=== PATIENT | male | born 1950 | race Caucasian/White ===

== ENCOUNTER 2020-09-23 02:44 | Inpatient (IN) ==
[2020-09-23] MEDS ORDERED: 0.9 % Sodium Chloride 1,000 ML IVC ONE (03:01)
[2020-09-23] MEDS ORDERED: Acetaminophen 325 MG TABLET PO ONE (03:31)
[2020-09-23 03:40] LABS: Basophils % 0.1 %; Eosinophils % 0.1 %; Hemoglobin 9.8 g/dL (12.9-16.9); Lymphocytes # 1.3 K/mcL (0.6-4.6); Lymphocytes % 6.7 %; Mean Corpuscular HGB Conc 29.7 g/dL (31.6-35.5); Mean Corpuscular Hemoglobin 25.8 pg (28.0-33.3); Mean Corpuscular Volume 86.8 fL (83.0-100.0); Mean Platelet Volume 10.8 fL (9.4-12.4); Monocytes # 1.1 K/mcL (0.0-1.3); Monocytes % 5.6 %; Neutrophils # 16.8 K/mcL (1.6-8.9); Platelet Count 225 K/mcL (140-400); Red Cell Distribution Width 16.5 % (11.5-14.5); Segmented Neutrophils % 86.5 %; White Blood Count 19.4 K/mcL (4.3-11.1)
[2020-09-23 04:02] LABS: BUN/Creatinine Ratio 23 (6-26); Blood Urea Nitrogen 21 mg/dL (8-23); Calcium 8.5 mg/dL (8.6-10.3); Carbon Dioxide 27 mEq/L (23-29); Chloride 99 mEq/L (98-107); Glucose 136 mg/dL (70-105); Osmolality,Calculated 281 (280-300); Potassium 4.1 mEq/L (3.5-5.1); Sodium 133 mEq/L (136-145); eGFR For African Americans > 60 (> 60); eGFR For Non-African Americans > 60 (> 60)
[2020-09-23 04:03] LABS: Troponin I < 0.03 ng/mL (< 0.04)
[2020-09-23] MEDS ORDERED: Isovue-370 500 ML BOTTLE IVP ONE ×2 (04:09→05:26)
[2020-09-23 05:14] LABS: Adenovirus Not Detected (Not Detect); Bordetella Pertussis Not Detected (Not Detect); Chlamydophila pneumoniae Not Detected (Not Detect); Coronavirus 229E Not Detected (Not Detect); Coronavirus HKU1 Not Detected (Not Detect); Coronavirus NL63 Not Detected (Not Detect); Coronavirus OC43 Not Detected (Not Detect); Human Metapneumovirus Not Detected (Not Detect); Human Rhinovirus/Enterovirus Not Detected (Not Detect); Influenza A Subtype 2009 H1 Not Detected (Not Detect); Influenza B Not Detected (Not Detect); Mycoplasma pneumoniae Not Detected (Not Detect); Parainfluenza Virus 1 Not Detected (Not Detect); Parainfluenza Virus 2 Not Detected (Not Detect); Parainfluenza Virus 3 Not Detected (Not Detect); Parainfluenza Virus 4 Not Detected (Not Detect); Respiratory Syncytial Virus Not Detected (Not Detect); SARS-CoV-2 Not Detected (Not Detect)
[2020-09-23] MEDS ORDERED: Furosemide 40 MG/4 ML VIAL IVP ONE (05:36)
[2020-09-23 05:38] LABS: Bacteria,Urine Few per hpf (None-Few); Bilirubin,Urine Negative (Negative); Blood,Urine Moderate (Negative); Clarity,Urine Clear (Clear); Color,Urine Light-Yellow (Yellow); Glucose,Urine (UA) Normal (Normal); Ketones,Urine Negative (Negative); Leukocyte Esterase,Urine Negative (Negative); Mucus,Urine Few per lpf (None-Few); Nitrite,Urine Negative (Negative); Protein,Urine 30 mg/dL (Neg-Trace); RBC,Urine 15-30 per hpf (0-3); Specific Gravity,Urine > 1.030 (1.010-1.025); Urobilinogen,Urine Normal (Normal); WBC,Urine 0-3 per hpf (0-3)
[2020-09-23] MEDS ORDERED: Piperacillin/Tazobactam 3.375 GM in Water for inj. (sterile) 20 ML IVP ONE (06:05)
[2020-09-23] MEDS ORDERED: Ondansetron ODT 4 MG TAB.RAPDIS SL PRN ×2 (06:27→13:51)
[2020-09-23] MEDS ORDERED: Acetaminophen 325 MG TABLET PO PRN ×2 (06:27→13:51)
[2020-09-23] MEDS ORDERED: Perflutren Lipid Microsphere 1.3 ML in 0.9 % Sodium Chloride 8.7 ML IVP PRN ×2 (06:36→13:51)
[2020-09-23] MEDS ORDERED: *HR* Dextrose 50 % in Water (Vial) 50 ML VIAL IVP PRN ×2 (07:05→13:51)
[2020-09-23] MEDS ORDERED: D5% in Water 1,000 ML IVC PRN ×2 (07:05→13:51)
[2020-09-23] MEDS ORDERED: Dextrose Gel 15 GM/37.5 ML TUBE PO PRN ×4 (07:05→13:51)
[2020-09-23] MEDS ORDERED: *HR* HYDROmorphone PF 0.5 MG/0.5 ML SYRINGE IVP PRN (09:13)
[2020-09-23] MEDS ORDERED: Ondansetron 4 MG/2 ML VIAL IVP PRN (09:13)
[2020-09-23] MEDS ORDERED: *HR* OxyCODONE Immed Rel 5 MG TABLET PO PRN ×3 (09:13→13:51)
[2020-09-23] MEDS ORDERED: Promethazine 6.25 MG in Water for inj. (sterile) 20 ML IVPB PRN (09:13)
[2020-09-23 09:26] LABS: INR 1.3; Prothrombin Time 14.6 Seconds (9.4-12.1)
[2020-09-23] MEDS ORDERED: *HR* Propofol 200 MG/20 ML VIAL IVP ONE (11:06)
[2020-09-23] MEDS ORDERED: *HR* FentaNYL (PF) 100 MCG/2 ML VIAL ONE (11:06)
[2020-09-23] MEDS ORDERED: *HR* Midazolam HCl 2 MG/2 ML VIAL ONE (11:06)
[2020-09-23] MEDS ORDERED: Ondansetron 4 MG/2 ML VIAL ONE (11:06)
[2020-09-23] MEDS ORDERED: Dexamethasone 4 MG/ML VIAL ONE (11:06)
[2020-09-23] MEDS ORDERED: Lidocaine -MPF 2% 2 ML VIAL ONE (11:06)
[2020-09-23] MEDS ORDERED: Lidocaine HCL 4 ML Topical Solution (Laryng-O-Jet Kit Sterile Pak) TP ONE (11:08)
[2020-09-23] MEDS ORDERED: *HR* Rocuronium Bromide 50 MG/5 ML VIAL ONE (11:12)
[2020-09-23] MEDS ORDERED: *HR* Succinylcholine 200 MG/10 ML VIAL IVP ONE (11:12)
[2020-09-23] MEDS ORDERED: Naloxone 0.4 MG/ML INJ IVP PRN ×2 (11:20→13:51)
[2020-09-23] MEDS ORDERED: *HR* HYDROcodone/Acet 5/325 mg TABLET PO PRN ×2 (11:20→13:51)
[2020-09-23] MEDS ORDERED: Insulin LISPRO 300 UNITS/3 ML VIAL SQ SCH ×2 (12:00→18:00)
[2020-09-23] MEDS ORDERED: *HR* Magnesium Sulfate 1 GM/2 ML VIAL ONE (12:12)
[2020-09-23] MEDS ORDERED: Acetaminophen IV 1,000 MG/100 ML INFUS..BTL ONE (12:12)
[2020-09-23] MEDS ORDERED: *HR* Vasopressin 20 UNIT/ML VIAL ONE (12:12)
[2020-09-23] MEDS ORDERED: Ketorolac 30 MG/ML VIAL ONE (12:55)
[2020-09-23] MEDS ORDERED: *HR* HYDROMORPHONE 2 MG/ML VIAL ONE (12:55)
[2020-09-23] MEDS ORDERED: *HR* PHENYLEPHRINE 1,000 MCG/10 ML SYRINGE IVP ONE (13:20)
[2020-09-23] MEDS ORDERED: Ringers Solution, Lactated 1,000 ML ONE (14:02)
[2020-09-23] MEDS: Piperacillin/Tazobactam 3.375 GM in 0.9 % Sodium Chloride Mini Bag 100 ML IVPB SCH ×2 (15:06→23:31)
[2020-09-23] MEDS ORDERED: Piperacillin/Tazobactam 3.375 GM in 0.9 % Sodium Chloride Mini Bag 100 ML IVPB SCH (16:00)
[2020-09-24 05:17] LABS: Hematocrit 28.5 % (37.5-50.1); Hemoglobin 8.3 g/dL (12.9-16.9); Mean Corpuscular HGB Conc 29.1 g/dL (31.6-35.5); Mean Corpuscular Hemoglobin 26.3 pg (28.0-33.3); Mean Corpuscular Volume 90.2 fL (83.0-100.0); Mean Platelet Volume 11.1 fL (9.4-12.4); Platelet Count 167 K/mcL (140-400); Red Blood Count 3.16 M/mcL (4.19-5.50); Red Cell Distribution Width 16.5 % (11.5-14.5); White Blood Count 12.6 K/mcL (4.3-11.1)
[2020-09-24 05:37] LABS: Calcium 8.2 mg/dL (8.6-10.3); Magnesium 2.4 mg/dL (1.6-2.6); Potassium 4.3 mEq/L (3.5-5.1)
[2020-09-24] MEDS ORDERED: *HR* Enoxaparin 40 MG/0.4 ML SYRINGE SQ SCH (06:00)
[2020-09-24] MEDS: *HR* Enoxaparin 40 MG/0.4 ML SYRINGE SQ SCH (06:12)
[2020-09-24] MEDS: Piperacillin/Tazobactam 3.375 GM in 0.9 % Sodium Chloride Mini Bag 100 ML IVPB SCH (08:45)
[2020-09-24] MEDS: methIMAzole 5 MG TABLET PO SCH (08:46)
[2020-09-24] MEDS: lisinopriL 20 MG TABLET PO SCH (08:46)
[2020-09-24] MEDS: Loratadine 10 MG TABLET PO SCH (08:46)
[2020-09-24 11:16] LABS: Adenovirus Not Detected (Not Detect); Bordetella Pertussis Not Detected (Not Detect); Chlamydophila pneumoniae Not Detected (Not Detect); Coronavirus 229E Not Detected (Not Detect); Coronavirus HKU1 Not Detected (Not Detect); Coronavirus NL63 Not Detected (Not Detect); Coronavirus OC43 Not Detected (Not Detect); Human Metapneumovirus Not Detected (Not Detect); Human Rhinovirus/Enterovirus Not Detected (Not Detect); Influenza A Subtype 2009 H1 Not Detected (Not Detect); Influenza B Not Detected (Not Detect); Mycoplasma pneumoniae Not Detected (Not Detect); Parainfluenza Virus 1 Not Detected (Not Detect); Parainfluenza Virus 2 Not Detected (Not Detect); Parainfluenza Virus 3 Not Detected (Not Detect); Parainfluenza Virus 4 Not Detected (Not Detect); Respiratory Syncytial Virus Not Detected (Not Detect); SARS-CoV-2 Not Detected (Not Detect)
[2020-09-24] MEDS ORDERED: 0.9 % Sodium Chloride 1,000 ML IVC SCH (12:30)
[2020-09-24] MEDS: metroNIDAZOLE 500 MG TABLET PO SCH ×2 (13:39→22:45)
[2020-09-24] MEDS ORDERED: (Doxepin Hcl 10 MG) PO SCH (21:00)
[2020-09-25 05:35] LABS: Red Cell Distribution Width 16.6 % (11.5-14.5)
[2020-09-25 05:36] LABS: Basophils % 0.2 %; Eosinophils # 0.3 K/mcL (0.0-0.6); Eosinophils % 2.2 %; Hematocrit 29.5 % (37.5-50.1); Hemoglobin 8.4 g/dL (12.9-16.9); Immature Granulocytes % 0.4 % (0-4); Lymphocytes # 1.8 K/mcL (0.6-4.6); Lymphocytes % 15.2 %; Mean Corpuscular HGB Conc 28.5 g/dL (31.6-35.5); Mean Corpuscular Hemoglobin 25.5 pg (28.0-33.3); Mean Corpuscular Volume 89.4 fL (83.0-100.0); Mean Platelet Volume 10.3 fL (9.4-12.4); Monocytes # 0.7 K/mcL (0.0-1.3); Monocytes % 5.4 %; Neutrophils # 9.2 K/mcL (1.6-8.9); Platelet Count 180 K/mcL (140-400); Segmented Neutrophils % 76.6 %
[2020-09-25 05:58] LABS: % Iron Saturation 3 % (20-55); Alanine Aminotransferase 11 Units/L (7-52); Albumin 2.8 g/dL (3.5-5.7); Albumin/Globulin Ratio 0.6 (1.1-2.2); Alkaline Phosphatase 85 Units/L (34-104); Aspartate Amino Transferase 12 Units/L (13-39); BUN/Creatinine Ratio 31 (6-26); Bilirubin,Total 0.3 mg/dL (0.3-1.0); Blood Urea Nitrogen 28 mg/dL (8-23); Calcium 8.3 mg/dL (8.6-10.3); Carbon Dioxide 32 mEq/L (23-29); Chloride 105 mEq/L (98-107); Globulin 4.9 g/dL (2.4-3.5); Glucose 105 mg/dL (70-105); Iron 11 mcg/dL (65-175); Lactate Dehydrogenase 124 Units/L (140-271); Osmolality,Calculated 296 (280-300); Potassium 4.2 mEq/L (3.5-5.1); Sodium 140 mEq/L (136-145); Total Protein 7.7 g/dL (6.4-8.9); Transferrin 235 mg/dL (203-362); eGFR For African Americans > 60 (> 60); eGFR For Non-African Americans > 60 (> 60)
[2020-09-25 06:04] LABS: Hypochromasia Present (Not Present); Platelet Estimate Normal (Normal)
[2020-09-25 06:13] LABS: Ferritin 72 ng/mL (20-250)
[2020-09-25 06:19] LABS: Folate 15.4 ng/mL (3.0-16.0)
[2020-09-25] MEDS: *HR* Enoxaparin 40 MG/0.4 ML SYRINGE SQ SCH (06:30)
[2020-09-25 07:05] LABS: Hepatitis B Surface Antigen Nonreactive (Nonreactive)
[2020-09-25] MEDS: metroNIDAZOLE 500 MG TABLET PO SCH (07:29)
[2020-09-25] MEDS: Loratadine 10 MG TABLET PO SCH (07:29)
[2020-09-25] MEDS: methIMAzole 5 MG TABLET PO SCH (07:29)
[2020-09-25] MEDS: lisinopriL 20 MG TABLET PO SCH (07:29)
[2020-09-25 07:34] LABS: Hepatitis C Virus Antibody Nonreactive (Nonreactive)
[2020-09-25 07:35] LABS: Hepatitis B Core IgM Nonreactive (Nonreactive)
[2020-09-25 07:36] LABS: Hepatitis A Antibody IgM Nonreactive (Nonreactive)
[2020-09-26] MEDS: *HR* Enoxaparin 40 MG/0.4 ML SYRINGE SQ SCH (05:41)
[2020-09-26 06:33] LABS: Basophils % 0.2 %; Eosinophils # 1.3 K/mcL (0.0-0.6); Eosinophils % 12.6 %; Hematocrit 29.1 % (37.5-50.1); Hemoglobin 8.6 g/dL (12.9-16.9); Immature Granulocytes % 0.3 % (0-4); Lymphocytes # 1.7 K/mcL (0.6-4.6); Lymphocytes % 16.9 %; Mean Corpuscular HGB Conc 29.6 g/dL (31.6-35.5); Mean Corpuscular Volume 87.9 fL (83.0-100.0); Mean Platelet Volume 10.5 fL (9.4-12.4); Monocytes # 0.6 K/mcL (0.0-1.3); Neutrophils # 6.4 K/mcL (1.6-8.9); Platelet Count 207 K/mcL (140-400); Red Blood Count 3.31 M/mcL (4.19-5.50); Red Cell Distribution Width 16.5 % (11.5-14.5)
[2020-09-26 06:55] LABS: BUN/Creatinine Ratio 27 (6-26); Blood Urea Nitrogen 21 mg/dL (8-23); Calcium 8.5 mg/dL (8.6-10.3); Carbon Dioxide 31 mEq/L (23-29); Chloride 105 mEq/L (98-107); Glucose 121 mg/dL (70-105); Osmolality,Calculated 292 (280-300); Potassium 4.3 mEq/L (3.5-5.1); Sodium 139 mEq/L (136-145); eGFR For African Americans > 60 (> 60); eGFR For Non-African Americans > 60 (> 60)
[2020-09-26] MEDS: Loratadine 10 MG TABLET PO SCH (08:40)
[2020-09-26] MEDS: lisinopriL 20 MG TABLET PO SCH (08:40)
[2020-09-26] MEDS: methIMAzole 5 MG TABLET PO SCH (08:40)
[2020-09-27] MEDS: *HR* Enoxaparin 40 MG/0.4 ML SYRINGE SQ SCH (06:35)
[2020-09-27 07:37] VITALS: BP 164/74
[2020-09-27] MEDS: Loratadine 10 MG TABLET PO SCH (08:15)
[2020-09-27] MEDS: lisinopriL 20 MG TABLET PO SCH (08:15)
[2020-09-27] MEDS: methIMAzole 5 MG TABLET PO SCH (08:16)
[2020-09-27 10:05] LABS: Basophils % 0.3 %; Eosinophils # 1.9 K/mcL (0.0-0.6); Eosinophils % 18.8 %; Hematocrit 34.2 % (37.5-50.1); Hemoglobin 10.1 g/dL (12.9-16.9); Immature Granulocytes % 0.5 % (0-4); Lymphocytes # 1.5 K/mcL (0.6-4.6); Mean Corpuscular HGB Conc 29.5 g/dL (31.6-35.5); Mean Corpuscular Hemoglobin 26.2 pg (28.0-33.3); Mean Corpuscular Volume 88.6 fL (83.0-100.0); Mean Platelet Volume 10.3 fL (9.4-12.4); Monocytes # 0.4 K/mcL (0.0-1.3); Monocytes % 4.4 %; Neutrophils # 6.1 K/mcL (1.6-8.9); Platelet Count 281 K/mcL (140-400); Red Blood Count 3.86 M/mcL (4.19-5.50); Red Cell Distribution Width 16.5 % (11.5-14.5)
[2020-09-28 09:58] LABS: ANA IgG by ELISA NONE DETECTED (None Detected)
== END 2020-09-27 18:14 | disposition home health service (06) | DRG 710 ==
LOC: EMEROOARM 02:44 → 3BNU 02:44 → SUATTDRO 06:55 → 3ANU 06:56 → SUATTDRO 09-25 20:54
PROVIDERS: ADMIT Family Medicine; ATTEND Internal Medicine

== ENCOUNTER 2020-11-13 17:13 | Inpatient (IN) ==
[2020-11-13] MEDS ORDERED: 0.9 % Sodium Chloride 1,000 ML IVC ONE (18:40)
[2020-11-13] MEDS ORDERED: Piperacillin/Tazobactam 3.375 GM in Water for inj. (sterile) 20 ML IVP ONE (18:43)
[2020-11-13 19:55] LABS: Influenza A PCR Negative (Negative); Influenza B PCR Negative (Negative); Resp. Syncytial Virus PCR Negative (Negative)
[2020-11-13 20:02] LABS: SARS-CoV-2 by PCR (In House) Negative (Negative)
[2020-11-13 20:36] LABS: Bilirubin,Urine Negative (Negative); Blood,Urine Negative (Negative); Clarity,Urine Clear (Clear); Color,Urine Colorless (Yellow); Glucose,Urine (UA) Normal (Normal); Ketones,Urine Negative (Negative); Leukocyte Esterase,Urine Negative (Negative); Nitrite,Urine Negative (Negative); Protein,Urine Negative (Neg-Trace); Specific Gravity,Urine > 1.030 (1.010-1.025); Urobilinogen,Urine Normal (Normal)
[2020-11-13] MEDS ORDERED: *HR* HYDROcodone/Acet 5/325 mg TABLET PO PRN (21:15)
[2020-11-13] MEDS ORDERED: Acetaminophen 325 MG TABLET PO PRN (21:15)
[2020-11-13] MEDS ORDERED: Naloxone 0.4 MG/ML INJ IVP PRN (21:15)
[2020-11-13] MEDS ORDERED: 0.9 % Sodium Chloride 1,000 ML IVC SCH (21:15)
[2020-11-13] MEDS: Piperacillin/Tazobactam 3.375 GM in 0.9 % Sodium Chloride Mini Bag 100 ML IVPB SCH (23:26)
[2020-11-14 05:26] LABS: Basophils % 0.7 %; Eosinophils # 0.4 K/mcL (0.0-0.6); Hematocrit 35.7 % (37.5-50.1); Immature Granulocytes % 0.2 % (0-4); Lymphocytes # 1.6 K/mcL (0.6-4.6); Lymphocytes % 25.9 %; Mean Corpuscular HGB Conc 30.8 g/dL (31.6-35.5); Mean Corpuscular Hemoglobin 27.1 pg (28.0-33.3); Mean Corpuscular Volume 87.9 fL (83.0-100.0); Mean Platelet Volume 10.6 fL (9.4-12.4); Monocytes # 0.5 K/mcL (0.0-1.3); Monocytes % 7.9 %; Neutrophils # 3.6 K/mcL (1.6-8.9); Platelet Count 201 K/mcL (140-400); Red Blood Count 4.06 M/mcL (4.19-5.50); Red Cell Distribution Width 19.7 % (11.5-14.5); Segmented Neutrophils % 58.3 %; White Blood Count 6.1 K/mcL (4.3-11.1)
[2020-11-14 05:46] LABS: BUN/Creatinine Ratio 21 (6-26); Blood Urea Nitrogen 20 mg/dL (8-23); Calcium 8.9 mg/dL (8.6-10.3); Carbon Dioxide 29 mEq/L (23-29); Chloride 105 mEq/L (98-107); Glucose 94 mg/dL (70-105); Osmolality,Calculated 294 (280-300); Sodium 141 mEq/L (136-145); eGFR For African Americans > 60 (> 60); eGFR For Non-African Americans > 60 (> 60)
[2020-11-14] MEDS: Piperacillin/Tazobactam 3.375 GM in 0.9 % Sodium Chloride Mini Bag 100 ML IVPB SCH ×2 (08:06→15:55)
[2020-11-14] MEDS ORDERED: lisinopriL 20 MG TABLET PO SCH (09:00)
[2020-11-14] MEDS ORDERED: Loratadine 10 MG TABLET PO SCH (09:00)
[2020-11-14] MEDS ORDERED: (Doxepin Hcl 10 MG) PO SCH (09:00)
[2020-11-14] MEDS ORDERED: methIMAzole 5 MG TABLET PO SCH (09:00)
[2020-11-14] MEDS ORDERED: Ondansetron 4 MG/2 ML VIAL IVP PRN (09:39)
[2020-11-14] MEDS ORDERED: *HR* Metoprolol 5 MG/5 ML VIAL IVP PRN (09:39)
[2020-11-14] MEDS ORDERED: Promethazine 6.25 MG in Water for inj. (sterile) 20 ML IVPB PRN (09:39)
[2020-11-14] MEDS ORDERED: Ketorolac 15 MG/ML VIAL IVP PRN (09:39)
[2020-11-14] MEDS ORDERED: *HR* OxyCODONE Immed Rel 5 MG TABLET PO PRN (09:39)
[2020-11-14] MEDS ORDERED: *HR* HYDROmorphone PF 0.5 MG/0.5 ML SYRINGE IVP PRN (09:39)
[2020-11-14] MEDS ORDERED: Acetaminophen IV 1,000 MG/100 ML BAG IVPB ONE (09:45)
[2020-11-14] MEDS ORDERED: *HR* Propofol 200 MG/20 ML VIAL IVP ONE (09:50)
[2020-11-14] MEDS ORDERED: *HR* FentaNYL (PF) 100 MCG/2 ML VIAL ONE ×2 (09:50→10:50)
[2020-11-14] MEDS ORDERED: Lidocaine HCL 4 ML Topical Solution (Laryng-O-Jet Kit Sterile Pak) TP ONE (09:51)
[2020-11-14] MEDS ORDERED: Lidocaine -MPF 2% 2 ML VIAL ONE (09:51)
[2020-11-14] MEDS ORDERED: Dexamethasone 4 MG/ML VIAL ONE (09:51)
[2020-11-14] MEDS ORDERED: *HR* Succinylcholine 200 MG/10 ML VIAL IVP ONE (09:51)
[2020-11-14] MEDS ORDERED: *HR* Rocuronium Bromide 50 MG/5 ML VIAL ONE (09:51)
[2020-11-14] MEDS ORDERED: EPHEDrine 50 MG/ML VIAL ONE (10:32)
[2020-11-14] MEDS ORDERED: *HR* Vasopressin 20 UNIT/ML VIAL ONE (10:38)
[2020-11-14] MEDS ORDERED: Sugammadex Sodium 200 MG/2 ML VIAL IV ONE (10:51)
[2020-11-14] MEDS ORDERED: Naloxone 0.4 MG/ML INJ IVP PRN (12:47)
[2020-11-14] MEDS ORDERED: *HR* HYDROcodone/Acet 5/325 mg TABLET PO PRN (12:47)
[2020-11-14] MEDS ORDERED: Acetaminophen 325 MG TABLET PO PRN (12:47)
[2020-11-15] MEDS: Piperacillin/Tazobactam 3.375 GM in 0.9 % Sodium Chloride Mini Bag 100 ML IVPB SCH ×2 (00:55→08:51)
[2020-11-15 06:28] LABS: Basophils % 0.4 %; Eosinophils % 0.3 %; Immature Granulocytes % 0.3 % (0-4); Lymphocytes # 1.5 K/mcL (0.6-4.6); Lymphocytes % 19.7 %; Mean Corpuscular HGB Conc 29.4 g/dL (31.6-35.5); Mean Corpuscular Hemoglobin 26.2 pg (28.0-33.3); Mean Corpuscular Volume 89.1 fL (83.0-100.0); Mean Platelet Volume 10.2 fL (9.4-12.4); Monocytes # 0.8 K/mcL (0.0-1.3); Monocytes % 10.1 %; Neutrophils # 5.4 K/mcL (1.6-8.9); Platelet Count 168 K/mcL (140-400); Red Blood Count 3.59 M/mcL (4.19-5.50); Red Cell Distribution Width 20.1 % (11.5-14.5); Segmented Neutrophils % 69.2 %; White Blood Count 7.8 K/mcL (4.3-11.1)
[2020-11-15 06:29] LABS: Hemoglobin 9.4 g/dL (12.9-16.9)
[2020-11-15 06:49] LABS: BUN/Creatinine Ratio 22 (6-26); Blood Urea Nitrogen 24 mg/dL (8-23); Calcium 8.6 mg/dL (8.6-10.3); Carbon Dioxide 29 mEq/L (23-29); Chloride 105 mEq/L (98-107); Glucose 123 mg/dL (70-105); Osmolality,Calculated 291 (280-300); Sodium 138 mEq/L (136-145); eGFR For African Americans > 60 (> 60); eGFR For Non-African Americans > 60 (> 60)
[2020-11-15] MEDS ORDERED: Loratadine 10 MG TABLET PO SCH (09:00)
[2020-11-15] MEDS ORDERED: (Doxepin Hcl 10 MG) PO SCH (09:00)
[2020-11-15] MEDS ORDERED: lisinopriL 20 MG TABLET PO SCH (09:00)
[2020-11-15] MEDS ORDERED: methIMAzole 5 MG TABLET PO SCH (09:00)
[2020-11-15 10:32] VITALS: BP 131/72
== END 2020-11-15 16:02 | disposition home health service (06) | DRG 711 ==
LOC: EMEROOARM 17:13 → 3ANU 17:13
PROVIDERS: ADMIT Family Medicine; ATTEND Family Medicine